=== PATIENT | male | born 1965 ===

== ENCOUNTER 2018-12-28 20:32 | Day surgery (SDC) | payer BC | END 2018-12-29 04:00 | disposition short-term general hospital (02) | LOC: C.3T 12-29 00:49 → C.ER 20:32 → C.SDS 20:32 ==

== ENCOUNTER 2019-02-13 09:26 | Day surgery (SDC) | payer BC ==
[2019-02-13 10:32] VITALS: BMI 30.9
[2019-02-13] MEDS ORDERED: Propofol 10 mg/ml Inj (20 ML) ONE (12:58)
[2019-02-13 13:56] VITALS: O2SAT 100
[2019-02-13 14:41] VITALS: BP 111/74; PULSE 72; RESP 21; TEMP 97.2
== END 2019-02-13 14:35 | disposition home or self-care (01) ==
LOC: C.ENDO 09:26
PROVIDERS: ATTEND Internal Medicine Gastroenterology
DX: D12.2 Benign neoplasm of ascending colon (principal); Z12.11 Encounter for screening for malignant neoplasm of colon; D12.3 Benign neoplasm of transverse colon; K64.1 Second degree hemorrhoids; I10 Essential (primary) hypertension
CPT/HCPCS: 45380; 45385; 88305; J2001; J2704